=== PATIENT | female | born 1950 | race Caucasian/White ===

== ENCOUNTER → 2018-08-14 17:29 | Outpatient (CLI) | payer MEDICARE | END | disposition home or self-care (01) | LOC: D.MAMMO 13:15 | DX: Z12.31 Encounter for screening mammogram for malignant neoplasm of breast (principal) ==

== ENCOUNTER → 2019-08-27 08:33 | Outpatient (CLI) | payer MEDICARE, BC | END | disposition home or self-care (01) | LOC: D.MRI 08:33 | PROVIDERS: ATTEND Family Medicine | DX: G43.409 Hemiplegic migraine, not intractable, without status migrainosus (principal); G44.53 Primary thunderclap headache ==

== ENCOUNTER → 2020-01-12 09:45 | Outpatient (CLI) | payer MEDICARE, BC | END | disposition home or self-care (01) | LOC: D.RAD 09:45 | PROVIDERS: ATTEND Internal Medicine Gastroenterology | DX: R05 Cough (principal); R49.0 Dysphonia; R13.10 Dysphagia, unspecified ==

== ENCOUNTER → 2020-01-19 12:32 | Outpatient (CLI) | payer MEDICARE, BC | END | disposition home or self-care (01) | LOC: D.RAD 12:32 | PROVIDERS: ATTEND Internal Medicine Gastroenterology | DX: R49.0 Dysphonia (principal); R05 Cough; R13.10 Dysphagia, unspecified ==

== ENCOUNTER → 2020-03-24 08:35 | Outpatient (CLI) | payer MEDICARE, BC ==
--- NOTE | 2020-03-24 10:06 | NUR ---
UNABLE TO COMPETE ESOPHAGEAL MANOMETRY. PT. WITH SMALL NASO PHARANGEAL ANATOMY, UNABLE TO PASS CATHETER BY LEFT NARE WITH MULTIPLE ATTEMPTS. ATTEMPT MADE TO PASS MANOMETRY CATHETER VIA RIGHT NARE WITH RESISTANCE AND BLOOD RETURN RESULTING IN NOSE BLEED. PT. CURRENTLY ON ANTICOAGULANT THERAPY ELEQUIS FOR HISTORY OF ATRIAL FIB AND MEDICATION HELD FOR ONLY 24 HR PRIOR TO TEST. NOSE BLEED CONTROLLED WITH ELEVATION AND PRESSURE. PT. ESCORTED TO FRONT DOOR AFTER NOSE BLEED STOPPED. OFFICE TO BE CONTACTED.
== END | disposition home or self-care (01) ==
LOC: D.OPS 08:35
PROVIDERS: ATTEND Internal Medicine Gastroenterology
DX: K21.9 Gastro-esophageal reflux disease without esophagitis (principal)

== ENCOUNTER 2020-10-05 06:00 | Inpatient (IN) | payer MEDICARE, BC ==
[2020-10-04 12:49] LABS: ANION GAP 11.4 mmol/L (8-16); CALCIUM 9.1 mg/dL (8.5-10.1); CARBON DIOXIDE 30.5 mmol/L (21.0-32.0); CREATININE - SERUM 1.2 mg/dL (0.6-1.3); POTASSIUM - SERUM 3.9 mmol/L (3.5-5.1)
[2020-10-04 12:51] LABS: APTT 30.3 SECONDS (22.8-39.4); INR 1.17 (0.85-1.17); PROTIME 13.8 SECONDS (11.6-15.0)
[2020-10-04 13:03] LABS: BASOPHILS 0.4 % (0-2); EOSINOPHILS 3.5 % (0-7); HEMATOCRIT 43.4 % (36.0-48.0); HEMOGLOBIN 14.8 g/dL (12-16); IMMATURE GRANULOCYTES 0.3 % (0-5); LYMPHOCYTE ABS# 3.22 10x3/uL (1.18-3.74); MCH 31.2 pg (26.0-34.0); MCHC 34.1 g/dL (31.0-37.0); MCV 91.4 fL (80.0-100.0); MEAN PLATELET VOLUME 10.3 fL (7.4-10.4); MONOCYTES 12.6 % (2-11); NEUTROPHIL ABS# 3.01 10x3/uL (1.56-6.13); NEUTROPHILS 40.2 % (40-80); PLATELET COUNT 270 10x3/uL (130-400); RBC 4.75 10x6/uL (4.00-5.40); RDW 13.1 % (11.5-14.5); WBC 7.5 10x3/uL (4.8-10.8)
[2020-10-05] VITALS (39 sets, daily range): BP systolic 74–187; BP diastolic 42–107; BMI 25.0
[~2020-10-05] VITALS: Ht 165.1 cm; Wt 94.9 kg
--- NOTE | ~2020-10-05 | OP ---
PATIENT NAME: ALEXANDER PATRICK MEDICAL RECORD: [id number] :50 LOCATION:D.[facility] D.2305 ADMISSION DATE:10/05/20 SURGEON: MENDEZ WESTBROOK MD DATE OF OPERATION: 10/08/2020 PREOPERATIVE DIAGNOSES: 1. Open abdomen. 2. Acute respiratory failure on the ventilator. 3. Acute renal failure. 4. Shock liver. 5. Postoperative blood loss anemia. 6. Lactic acidosis. POSTOPERATIVE DIAGNOSES: 1. Open abdomen. 2. Acute respiratory failure on the ventilator. 3. Acute renal failure. 4. Shock liver. 5. Postoperative blood loss anemia. 6. Lactic acidosis. 7. Ischemic bowel. PROCEDURE: Abdominal washout with abdominal wound VAC exchange. SURGEON: Mendez Westbrook MD DESCRIPTION OF PROCEDURE: The patient was taken to the operating room. The indwelling abdominal wound VAC was removed including all 5 lap sponges and the two 10 flat RENEE drains. The patient's abdomen was then prepped and draped in sterile fashion. As we inspected the abdomen, there was only a scant amount of blood clot present in the abdomen, some on the right pericolic gutter and another little bit on the left upper quadrant. There seemed to be no evidence of any active hemorrhage anywhere in the abdominal cavity. Unfortunately, there was a lot of ischemic looking bowel present. There are multiple areas throughout the distal small bowel, which had ischemic changes, but no signs of ginny necrosis. There were some ischemic changes to the cecum again with no ginny necrosis and there were some ischemic changes to the distal transverse colon about the level of the splenic flexure again with no necrosis. There was no sign of any bowel perforation. We inspected the entire small bowel, colon, and stomach and saw no evidence of any perforation other than the ischemic tissue that we described. I irrigated out the abdomen thoroughly with normal saline. The patient's abdominal cavity appeared to be viable. The spleen appeared viable and the liver had some dusky appearance to it. There are no signs of any succuss or feculent material in the abdomen. There were no signs of any abscess pockets. At this point, a sterile cassette drape was inserted with multiple perforations in it and laid in underlay fashion over the bowel. Five lap sponges and two 10 flat RENEE drains were then inserted and an Ioban was placed loosely as an abdominal wound VAC. This held suction appropriately. COMPLICATIONS: None. CONDITION: critical. ANESTHESIA: General endotracheal. OPERATIVE REPORT [id number] ALEXANDER PATRICK BLOOD LOSS: Minimal. The patient transferred back to the ICU. TRANSINT:[id number] Voice Confirmation ID: [id number] DOCUMENT ID: [id number] MENDEZ WESTBROOK MD CC: [id number] DICTATION DATE: 10/08/20 143 OPERATING ROOM REGISTERED NURSE: 10/08/20 224 ADM IN [place] [id number] [place] [address]
--- NOTE | ~2020-10-05 | OP ---
PATIENT NAME: ALEXANDER PATRICK MEDICAL RECORD: [id number] :50 LOCATION:.[facility] D.2305 ADMISSION DATE:10/05/20 SURGEON: MENDEZ WESTBROOK MD DATE OF OPERATION: 10/07/2020 PREOPERATIVE DIAGNOSES: 1. Hemorrhagic shock. 2. Coagulopathy. 3. Left pleural effusion. 4. Worsening acute respiratory failure, on the ventilator. 5. Acute renal failure. 6. Shock liver. POSTOPERATIVE DIAGNOSES: 1. Hemorrhagic shock. 2. Coagulopathy. 3. Left pleural effusion. 4. Worsening acute respiratory failure, on the ventilator. 5. Acute renal failure. 6. Shock liver. 7. Abdominal compartment syndrome. PROCEDURE: 1. Exploratory laparotomy with abdominal wound VAC placement. 2. Left 24-Cape Verdean chest tube placement. SURGEON: Mendez Westbrook MD DESCRIPTION OF PROCEDURE: The patient's abdomen was prepped and draped in sterile fashion. The patient had previous incisions from a laparoscopic Oksana fundoplication. These were all opened up. The 11-mm trocar site in the left upper quadrant was penetrated and we were able to insert an 11-mm trocar. We attempted insufflation and the initial pressures were 35. We decided at this point to convert to a laparotomy because there was a major concern of abdominal compartment syndrome with the patient's current physiologic state. A midline incision was performed from the base of the xiphoid down to just below the umbilicus. Electrocautery was used to dissect through the subcutaneous tissues and fascia and we entered the abdominal cavity. Upon entering the abdominal cavity, the patient's peak airway pressures were around 39, but quickly decreased and ended up stabilizing at about 27 consistent with the compartment syndrome. The patient had a large amount of old bloody fluid and a significant amount of blood clots throughout the abdomen. These were all scooped out and we irrigated out the abdomen thoroughly with normal saline. The patient's 4 quadrants and pelvis were inspected individually and packed with laps. As we inspected each quadrant, we saw no evidence of any active bleeding anywhere, but there was some oozing, especially from the left upper quadrant from the previous Oksana fundoplication. There were 2 areas, which had some more significant ooze to it and these were oversewn with 3-0 silks, which discontinued any bleeding in that spot. There continued to be just generalized ooze from some of the tissues, but this did not appear to be very significant. We irrigated out the abdomen thoroughly and inspected the bowels. There was some duskiness to some of the small bowel, but that overall appeared to be pink and viable with good peristalsis. The colon appeared to be viable from the cecum all the way to the proximal portion of the rectum. The stomach was inspected thoroughly. There was some duskiness to the tissue, but no signs of necrotic changes. The Oksana OPERATIVE REPORT [id number] ALEXANDER PATRICK wrap was still intact, but one of the sutures was loose. The suture was removed and a new 2-0 Nurolon was put in its place. The patient's NG tube was moved until it rested in good position in the distal aspect of the stomach. In order to visualize this, I took down the triangular ligament of the left lobe of the liver. With this, I was able to fully visualize the previous surgical site. The spleen was visualized and there was no sign of any bleeding from the spleen, but there was from some of from some of the peritoneum on the posterior aspect of the abdomen near the spleen. This was treated with electrocautery. There was no significant arterial or venous bleeding noted anywhere throughout the abdomen and at the conclusion of the case there was minimal ooze present. I placed a 19 round Yvon drain through the left lateral abdomen and placed this underneath the left lobe of the liver overlying the spleen and the Oksana wrap. This was done because of concerns for further bleeding and oozing from the tissues. The patient then had a sterile cassette drape inserted into the abdominal cavity in an underlay fashion. Five lap sponges were placed over top of this with two 10 flat RENEE drains placed in between them and Ioban dressing was applied over the abdomen and the drains were placed to suction for a wound VAC. Upon placement of the wound VAC, there was no increase in the peak airway pressures and the patient's blood pressure and heart rate were stable. At this point, we prepped the patient's left lateral chest. A transverse incision was made about the 7th intercostal space and I was able to use blunt dissection and a hemostat to come over the intercostal space of the 7th rib. As we entered the thoracic cavity, I felt no evidence of any hematoma. I was able to insert a 24-Cape Verdean chest tube and there was immediate return of about 400 mL of thin bloody fluid with no clots. This was sutured into place with a 2-0 nylon and set to 20 cm of water suction. Dressings were applied. COMPLICATIONS: None. CONDITION: Critical. ANESTHESIA: General endotracheal. BLOOD LOSS: 100 mL. The patient was transferred back to the ICU. TRANSINT:[id number] Voice Confirmation ID: [id number] DOCUMENT ID: [id number] MENDEZ WESTBROOK MD CC: [id number] DICTATION DATE: 10/07/201838 DISPATCHER CHIEF OIL: 10/07/20 2343 ADM IN [facility] [address] [place] [address]
--- NOTE | ~2020-10-05 | OP ---
PATIENT NAME: ALEXANDER PATRICK MEDICAL RECORD: [id number] :50 LOCATION:.[facility] D.2305 ADMISSION DATE:10/05/20 SURGEON: MENDEZ WESTBROOK MD DATE OF OPERATION: 10/05/2020 PREOPERATIVE DIAGNOSES: 1. Hemorrhagic shock, status post laparoscopic Oksana. 2. Intra-abdominal postoperative hemorrhage. 3. Acute blood loss anemia. 4. Atrial fibrillation. POSTOPERATIVE DIAGNOSES: 1. Hemorrhagic shock, status post laparoscopic Oksana. 2. Intra-abdominal postoperative hemorrhage. 3. Acute blood loss anemia. 4. Atrial fibrillation. PROCEDURES: 1. Abdominal exploration laparoscopically with removal of hematoma and ligation of bleeding vessel. 2. Right femoral Trialysis catheter placement by Dr. Woodall. 3. Right femoral art line placement by Dr. Woodall. 4. Right chest tube placement by Dr. Woodall. SURGEON: Mendez Westbrook MD. COSURGEON: John Woodall MD. REPORT OF OPERATION: The patient was taken emergently to the operating room from recovery where she was noted to have a steep drop in her hematocrit postoperatively with low blood pressures. The patient had attempts made for IJ central venous lines, which were unsuccessful. We prepped and draped the abdomen and I was able to reenter through the previous trocar sites from the recent Oksana fundoplication. Once inside, there was a large amount of blood and clot that was present. We were eventually able to suction out most of this blood clot and get up to the area underneath the left lobe of the liver. The previous liver biopsy site had no evidence of any bleeding. The spleen appeared to be normal and there is no sign of any bleeding from the stomach itself. The bleeding appeared to be coming from an aberrant blood vessel on the lesser omentum. This blood vessel had actually been seen on the initial surgery and was treated with Harmonic scalpel on a couple of occasions and had no evidence of any bleeding in any time through the course. There was pulsatile bleeding from this vessel and there were 2 branches of it. I was able to find both branches and this was clipped proximally and distally and this stopped any bleeding from the abdominal cavity. We then irrigated out the abdomen and ensured there was no sign of any active surgical bleeding anywhere else, which there was none. The area was then instilled with Gayathri and 11-mm trocar sites were then closed with 0 Vicryl using a Grzegorz-Dayanara suture passer device and the skin incisions were all closed with liz. During the case, Dr. Woodall placed a right femoral Trialysis catheter for IV access and also a right femoral arterial line. There was concern during the case with continued low blood pressures that there might have been a pneumothorax from the right IJ attempted central line placement. A chest tube was inserted in the right chest by Dr. Woodall. There was a small amount of air present, but otherwise it appeared to be clear and clean. This was sutured into place with nylon stitch. The patient OPERATIVE REPORT [id number] ALEXANDER PATRICK did have a lot of swelling in the neck region and an x-ray showed the chest tube to be in good position, but there was widened mediastinum. By this point, the patient had received about 12 units of blood, 3 units of FFP, and a unit of platelets. She was stable and off of pressors with hypertension at this point. The patient was off all drips other than some nitroglycerin. A transthoracic echo had been performed and it showed no evidence of significant pericardial effusion and no sign of tamponade. The patient's EF was felt to be around 55%. COMPLICATIONS: Postoperative bleeding. CONDITION: Guarded. TRANSINT:[id number] Voice Confirmation ID: [id number] DOCUMENT ID: [id number] MENDEZ WESTBROOK MD CC: [id number] DICTATION DATE: 10/05/20 1318 BIAS BINDING FOLDER: 10/05/202151 ADM IN [facility] [address] [place] [id number]
--- NOTE | ~2020-10-05 | OP ---
PATIENT NAME: ALEXANDER PATRICK MEDICAL RECORD: [id number] :50 LOCATION:.[facility] D.2305 ADMISSION DATE:10/05/20 SURGEON: MENDEZ WESTBROOK MD DATE OF OPERATION: 10/05/2020 PREOPERATIVE DIAGNOSES: 1. Gastroesophageal reflux disease. 2. Hiatal hernia. 3. Hypertension. 4. Atrial fibrillation. POSTOPERATIVE DIAGNOSES: 1. Gastroesophageal reflux disease. 2. Hiatal hernia. 3. Hypertension. 4. Atrial fibrillation. PROCEDURE: 1. Laparoscopic Oksana hiatal hernia repair. 2. Laparoscopic liver biopsy. SURGEON: Mendez Westbrook MD DESCRIPTION OF PROCEDURE: The patient's abdomen was prepped and draped in sterile fashion. A Veress needle was inserted in the left upper quadrant and the abdomen was insufflated. An 11-mm Visiport trocar was inserted in the midline just above the umbilicus. I could see the Veress needle and there was no sign of any injury to bowel or surrounding structures. An 11-mm trocar was then placed in the left subcostal region. A 5-mm trocar was placed in the epigastrium. A 5-mm trocar was placed in the left lateral abdomen and a final 5-mm trocar was placed in the right lateral subcostal region. A liver retractor was inserted and the left lobe of the liver was elevated. The liver was noted to be kind of chronically inflamed with some cobblestone appearance concerning for cirrhotic changes. The liver was heavy and firm as well. We could see the stomach and there was a small hiatal hernia present. We began taking down the lesser omentum using Harmonic scalpel. There was a venous structure present within this and this was ligated with the Harmonic scalpel. We took down the lesser omentum up to the right side of the right kandy and scored the peritoneum before entering the thoracic cavity. We took down the hernia sac and released the tissues as far anteriorly and posteriorly as possible. We then approached the greater curvature of the stomach and took down the upper third of the short gastrics using Harmonic scalpel all the way to the left side of the right kandy. We then scored the peritoneum and entered the thoracic cavity. At this point, we freed up all the adhesions until we had a 360-degree inspection of the patient's esophagus and distal stomach. We freed up the esophagus enough to where about 2-3 cm of it rested comfortably in the abdominal cavity without any tension. We then reapproximated the esophageal hiatus using interrupted 0 Polydek times 2. The fundus of the stomach was pulled around the distal esophagus in a posterior fashion for a 360-degree wrap. This was done utilizing interrupted 0 Polydek times 3 with the top and the bottom suture incorporating a bite of the esophagus. The wrap appeared to rest in good position with no tension and there was plenty of esophagus present in the abdominal cavity. The area was then irrigated out thoroughly with normal saline and care was taken to assure there was no sign of any bleeding. At this point, a 14-gauge Kameron-Cut liver biopsy tool was used to take 2 specimens of the left lobe of the liver. OPERATIVE REPORT [id number] ALEXANDER PATRICK Any bleeding from this was then treated with electrocautery. At this point, the 11-mm trocar site fascias were closed with interrupted 0 Vicryl using a Grzegorz-Dayanara suture passer device. The liver retractor along with the ports and insufflation were then removed. The skin incisions were infused with a total of 10 mL of 0.25% Marcaine plain and then were closed with running subcutaneous 5-0 Monocryl. COMPLICATIONS: None. CONDITION: Stable. ANESTHESIA: General endotracheal and local. BLOOD LOSS: Minimal. TRANSINT:[id number] Voice Confirmation ID: [id number] DOCUMENT ID: [id number] MENDEZ WESTBROOK MD CC: MAHSA WALTON [id number] DICTATION DATE: 10/05/2049 MEDICAL LAB SPECIALIST: 10/05/20 1319 ADM IN [facility] [address] [place] [id number]
[~2020-10-05 06:00] MED LIST: CYMBALTA30 MG PO; ELIQUIS5 MG PO; KRILL OIL 1,001 EAC1 PO; LISINOPRIL20 MG PO; LOPRESSOR25 MG PO; MAG-OX 400 MG400 MG PO; PEPCID40 MG PO; PREVACID30 MG PO
[2020-10-05 10:36] LABS: BASOPHILS 0.2 % (0-2); EOSINOPHILS 0.6 % (0-7); IMMATURE GRANULOCYTES 0.1 % (0-5); LYMPHOCYTE ABS# 4.13 10x3/uL (1.18-3.74); LYMPHOCYTES 49.3 % (15-50); MCH 30.3 pg (26.0-34.0); MCHC 32.8 g/dL (31.0-37.0); MCV 92.4 fL (80.0-100.0); MONOCYTES 4.3 % (2-11); NEUTROPHILS 45.5 % (40-80); RDW 13.1 % (11.5-14.5); WBC 8.4 10x3/uL (4.8-10.8)
[2020-10-05 10:46] LABS: HEMATOCRIT 23.2 % (36.0-48.0); HEMOGLOBIN 7.6 g/dL (12-16); PLATELET COUNT 185 10x3/uL (130-400); RBC 2.51 10x6/uL (4.00-5.40)
[2020-10-05 10:49] LABS: ANION GAP 8.6 mmol/L (8-16); CALCIUM 7.4 mg/dL (8.5-10.1); CARBON DIOXIDE 28.8 mmol/L (21.0-32.0); CREATININE - SERUM 1.4 mg/dL (0.6-1.3); POTASSIUM - SERUM 4.4 mmol/L (3.5-5.1)
[2020-10-05 13:40] LABS: ANION GAP 24.3 mmol/L (8-16); CALCIUM 10.8 mg/dL (8.5-10.1); CARBON DIOXIDE 24.1 mmol/L (21.0-32.0); CREATININE - SERUM 1.8 mg/dL (0.6-1.3); POTASSIUM - SERUM 3.4 mmol/L (3.5-5.1)
[2020-10-05 13:43] LABS: BASOPHILS 0.1 % (0-2); EOSINOPHILS 0.3 % (0-7); IMMATURE GRANULOCYTES 0.8 % (0-5); LYMPHOCYTES 21.6 % (15-50); MCH 28.2 pg (26.0-34.0); MCHC 31.9 g/dL (31.0-37.0); MONOCYTES 2.3 % (2-11); NEUTROPHIL ABS# 9.73 10x3/uL (1.56-6.13); NEUTROPHILS 74.9 % (40-80); PLATELET COUNT 148 10x3/uL (130-400); RDW 15.3 % (11.5-14.5)
[2020-10-05 13:51] LABS: ALBUMIN 1.7 g/dL (3.4-5.0); BILIRUBIN - TOTAL 0.71 mg/dL (0.2-1.3); PROTEIN - SERUM 3.9 g/dL (6.4-8.2)
[2020-10-05 13:55] LABS: HEMATOCRIT 30.4 % (36.0-48.0); HEMOGLOBIN 9.7 g/dL (12-16); MCV 88.4 fL (80.0-100.0); RBC 3.44 10x6/uL (4.00-5.40)
[2020-10-05 14:11] LABS: APTT 138.8 SECONDS (22.8-39.4); INR 2.37 (0.85-1.17)
--- NOTE | 2020-10-05 14:40 | NUR ---
DELAYED ENTRY - PT ARRIVED TO PACU @ 0946, ASSESSMENT MADE. AT APPROX 0952, PT BP READ 52/33. CUFF READJUSTED, SIMILAR RESULT. PT PLACED IN [place] WHILE ADDITIONAL BP CUFF PLACED IN ALTERNATE LOCATION AND ATTACHED TO [employer]. RESULTS CORRELATED. WARD ROBERTS CLOTH HAULER AT BEDSIDE, EPHEDRINE 20 MG GIVEN IV AT APPROX 0955. ADDITIONAL STAFF ARRIVED TO PACU, INCLUDING POLINA GRIFFIN CRNA. DR BALL ARRIVED, MLTIPLE INTERVENTIONS ORDERED - SEE ANESTHESIA RECORD. 12 LEAD EKG, FINGER STICK BLOOD GLUCOSE, BLOOD GASES, CBC, CXR ORDERED. DR WESTBROOK JOINED THE GROUP AT BEDSIDE. UPON RETURN OF H&H, DECISION WAS MADE TO RETURN PT TO OR FOR EXPLORATORY LAP. PT LEFT PACU AT APPROX 1103.
--- NOTE | 2020-10-05 19:23 | NUR ---
REC'D REPORT AND CARE CONTINUED. PT INTUBATED WITH NO SPONT RESP OVER VENT. PUPILS 5 S/P ATROPINE. BUT WILL WINCE WHEN EYES EXAMINED. ON LEVO AND VASO FOR BP SUPPORT. TERRIE AND CENTRAL LINE TO RIGHT FEM. DRESSINGS TO EXP LAP SITES MINIMAL OOZING. BRUISING TO NECK, UPPER TORSO AND ARMS. OOZING FROM MOUTH AND ETT. ALSO OOZING AT RIGHT CW CT SITE. 1929 LABS DRAWN FROM [place]. TEMP 94 AXILLARY AND WARMING BLANKET PLACED ON PT. AWAITING LABS RESULTS. PT ONLY WINCES WITH EYES WHEN EXAMINED. NO OTHER MOVEMENT NOTED. WILL CONT TO MONITOR.
[2020-10-05 19:35] LABS: BASOPHILS 0.1 % (0-2); EOSINOPHILS 0.1 % (0-7); IMMATURE GRANULOCYTES 0.6 % (0-5); LYMPHOCYTE ABS# 2.63 10x3/uL (1.18-3.74); LYMPHOCYTES 15.3 % (15-50); MCH 28.1 pg (26.0-34.0); MCHC 32.6 g/dL (31.0-37.0); MEAN PLATELET VOLUME 9.2 fL (7.4-10.4); MONOCYTES 11.8 % (2-11); NEUTROPHIL ABS# 12.38 10x3/uL (1.56-6.13); NEUTROPHILS 72.1 % (40-80); PLATELET COUNT 140 10x3/uL (130-400); RDW 15.6 % (11.5-14.5)
[2020-10-05 19:36] LABS: HEMATOCRIT 23.3 % (36.0-48.0); HEMOGLOBIN 7.6 g/dL (12-16); WBC 17.2 10x3/uL (4.8-10.8)
[2020-10-05 19:37] LABS: MCV 86.3 fL (80.0-100.0)
--- NOTE | 2020-10-05 21:29 | NUR ---
2000 HERE AND UPDATED. CHILDREN TO FOLLOW. 2024 PAGED YOGESH WITH LAB RESULTS. SPOKE WITH YOGESH AND POC ESTABLISHED. ORDERS PLACED. 2049 DARIANA PAGED TO UPDATE ON LAB RESULTS AND DISCUSS PLAN ESTABLISHED WITH YOGESH. 2 UNITS FFP STARTED. HOLDING PRESSORS VOLUME HELPING WITH BP. FFP DONE 2099. LAB SETTING UP THE ADDTIONAL 2 ORDERED. 2119 2 UNITS PRBC BOTH STARTED. LAB REPORTS CAN GIVE PLT AFTER BLOOD IN.
[2020-10-05 21:40] LABS: ALBUMIN 1.9 g/dL (3.4-5.0); BILIRUBIN - TOTAL 1.53 mg/dL (0.2-1.3); CALCIUM 9.3 mg/dL (8.5-10.1)
[2020-10-05 21:51] LABS: CARBON DIOXIDE 12.9 mmol/L (21.0-32.0); CREATININE - SERUM 2.5 mg/dL (0.6-1.3); POTASSIUM - SERUM 4.9 mmol/L (3.5-5.1)
--- NOTE | 2020-10-05 23:39 | NUR ---
2199 LAB CALLED WITH RESULTS OF CMP. AMP BICARB GIVEN FOR LOW GLUCOSE. DR ZUÑIGA PAGED WITH LABS. NEW ORDERS NOTED. IVF CHANGED TO D5 WITH 2 AMPS BICARB. AM LABS CHANGED. ORDERS PLACED IN SYSTEM. 2244 DAUGHTER BACK TO VISIT. UPDATED ON STATUS. PT AWAKE NOW AND AFTER VISIT BECAME AGITATED. ATTEMPTED TO RELAX PT. MOVING ARMS AROUND IN BED. WHEN ASKED IF HURTING SHAKES HEAD NO. SHAKES HEAD TO HOT. TEMP IMPROVED ON CHECK AND BLANKET PLACED ON HOLD. PROPOFOL STARTED AT LOW DOSE FOR AGITATION AND RESTRAINTS PLACED FOR SAFETY. 0 AFTER LAST OF BLOOD PRODUCTS BP IMPROVED. LEVO OFF SINCE FIRST SET OF PRODUCTS AT 2100. NOW VASO CUT IN HALF. [address] HOLD. [address] FRANK CALLED TO CHECK ON PT. UPDATE GIVEN. 2344 MAP 58 RETURNED VASO TO 0.02UNITS/HR. WILL MONITOR CLOSELY.
[2020-10-06] VITALS (40 sets, daily range): BP systolic 93–163; BP diastolic 41–85; BMI 30.7; BMI 31.8
--- NOTE | 2020-10-06 08:08 | EC ---
PATIENT:ALEXANDER PATRICK DATE OF SERVICE: 10/05/20 SEX: F MEDICAL RECORD: [id number] DATE OF : 50 LOCATION:[facility] D230 AGE OF PATIENT: 69 ADMISSION DATE: 10/05/20 REFERRING PHYSICIAN: INTERPRETING PHYSICIAN: DANDRE MARTINEZ MD ECHOCARDIOGRAM REPORT ECHO CHARGES 5 ECHO LIMITED Date: 10/05/20 CLINICAL DIAGNOSIS: R/O PERICARDIAL EFFUSION DURING SURGERY ECHOCARDIOGRAPHIC MEASUREMENTS (adult normal given) AC root (d.<3.7cm) 0 cm LV Septum d (<1.2 cm> 0 cm Valve Excursion 0 cm LV Septum (systole) 0 cm Left Atria (s.<4.0cm> 0 cm LVPW d(<1.2cm) 0 cm RV (d.<2.3cm) 0 cm LVPW (sytole) 0 cm LV diastole(<5.6CM) 0 cm MV E-F(>70mm/sec) 0 cm LV systole 0 cm LVOT Diameter 0 cm MV exc.(>10mm) 0 cm Est.ejection fraction (50-75%) % DOPPLER: LVIT cm/sec A 0 cm/sec E 0 cm/sec LA 0 cm/sec RVSP 0 mmHg LVOT 0 cm/sec AOP1/2T 0 m/s Asc. Ao 0 cm/sec RVOT 0 cm/sec RA 0 cm/sec PA 0 cm/sec AV Gradient Peak 0 mmHg AV Mean 0 mmHg AV Area 0 cm MV Gradient Peak 0 mmHg MV Mean 0 mmHg MV Area 0 cm COMMENTS: 0 Hspt Tutor: Fei TIPTONSALINA BENITO Hospitality Workers: 3 Dr. Shaver TAPE# Pericardial Effusion Y DATE OF SERVICE: Limited study to rule out pericardial effusion. Grossly LV internal dimension is normal. Wall motion is normal. EF is greater than or equal to 55%. Aortic valve has good valve excursion. Left atrium grossly appears normal. Mitral valve appears normal. A small mostly posterior pericardial effusion is noted with no hemodynamic significance. TRANSINT:[id number] Voice Confirmation ID: [id number] DOCUMENT ID: [id number] ECHOCARDIOGRAM REPORT [id number] ALEXANDER PATRICK DANDRE MARTINEZ MD at 0808 CC: [id number] DICTATION DATE: 10/05/20 1630 VEHICLE MAINTENANCE TECHNICIAN: 04/07/[address] [facility] [address] [place] [place] [id number]
[2020-10-06 08:29] LABS: BASOPHILS 0.1 % (0-2); EOSINOPHILS 0.1 % (0-7); IMMATURE GRANULOCYTES 0.3 % (0-5); LYMPHOCYTE ABS# 2.57 10x3/uL (1.18-3.74); LYMPHOCYTES 18.6 % (15-50); MCH 29.1 pg (26.0-34.0); MCHC 33.5 g/dL (31.0-37.0); MCV 86.9 fL (80.0-100.0); MEAN PLATELET VOLUME 10.7 fL (7.4-10.4); MONOCYTES 8.5 % (2-11); NEUTROPHIL ABS# 10.02 10x3/uL (1.56-6.13); NEUTROPHILS 72.4 % (40-80); PLATELET COUNT 141 10x3/uL (130-400); RDW 15.5 % (11.5-14.5); WBC 13.8 10x3/uL (4.8-10.8)
[2020-10-06 08:32] LABS: HEMATOCRIT 17.3 % (36.0-48.0); HEMOGLOBIN 5.8 g/dL (12-16); RBC 1.99 10x6/uL (4.00-5.40)
[2020-10-06 08:38] LABS: BILIRUBIN - TOTAL 1.18 mg/dL (0.2-1.3); CALCIUM 8.6 mg/dL (8.5-10.1); POTASSIUM - SERUM 4.5 mmol/L (3.5-5.1); PROTEIN - SERUM 4.2 g/dL (6.4-8.2)
[2020-10-06 08:39] LABS: CREATININE - SERUM 3.2 mg/dL (0.6-1.3)
[2020-10-06 08:40] LABS: ANION GAP 29.8 mmol/L (8-16); CARBON DIOXIDE 19.7 mmol/L (21.0-32.0)
[2020-10-06 08:50] LABS: INR 2.67 (0.85-1.17); PROTIME 26.5 SECONDS (11.6-15.0)
[2020-10-06 13:17] LABS: BASOPHILS 0.1 % (0-2); EOSINOPHILS 0.1 % (0-7); IMMATURE GRANULOCYTES 0.5 % (0-5); LYMPHOCYTES 15.4 % (15-50); MCHC 33.6 g/dL (31.0-37.0); MEAN PLATELET VOLUME 10.1 fL (7.4-10.4); NEUTROPHIL ABS# 9.64 10x3/uL (1.56-6.13); NEUTROPHILS 73.9 % (40-80); RDW 20.5 % (11.5-14.5)
[2020-10-06 13:26] LABS: HEMOGLOBIN 11.1 g/dL (12-16); MCV 83.1 fL (80.0-100.0); PLATELET COUNT 83 10x3/uL (130-400)
[2020-10-06 13:32] LABS: RBC 3.97 10x6/uL (4.00-5.40)
[2020-10-06 13:35] LABS: APTT 42.1 SECONDS (22.8-39.4); INR 3.13 (0.85-1.17)
[2020-10-06 13:42] LABS: ALBUMIN 1.7 g/dL (3.4-5.0); ANION GAP 24.2 mmol/L (8-16); BILIRUBIN - TOTAL 1.02 mg/dL (0.2-1.3); CALCIUM 7.9 mg/dL (8.5-10.1); CARBON DIOXIDE 23.1 mmol/L (21.0-32.0); CREATININE - SERUM 3.2 mg/dL (0.6-1.3); POTASSIUM - SERUM 4.3 mmol/L (3.5-5.1); PROTEIN - SERUM 3.7 g/dL (6.4-8.2)
[2020-10-06 14:42] LABS: MAGNESIUM - SERUM 1.9 mg/dL (1.8-2.4); PHOSPHOROUS 6.2 mg/dL (2.5-4.9)
[2020-10-06 15:58] LABS: INR 1.97 (0.85-1.17); PROTIME 20.8 SECONDS (11.6-15.0)
[2020-10-06 18:43] LABS: BASOPHILS 0.1 % (0-2); EOSINOPHILS 0 % (0-7); IMMATURE GRANULOCYTES 0.4 % (0-5); LYMPHOCYTE ABS# 2.36 10x3/uL (1.18-3.74); LYMPHOCYTES 17.2 % (15-50); MCH 27.7 pg (26.0-34.0); MCHC 33.6 g/dL (31.0-37.0); MCV 82.3 fL (80.0-100.0); MEAN PLATELET VOLUME 10.5 fL (7.4-10.4); MONOCYTES 9.5 % (2-11); NEUTROPHILS 72.8 % (40-80); PLATELET COUNT 74 10x3/uL (130-400); RDW 20.7 % (11.5-14.5); WBC 13.7 10x3/uL (4.8-10.8)
[2020-10-06 18:44] LABS: HEMATOCRIT 25.6 % (36.0-48.0); HEMOGLOBIN 8.6 g/dL (12-16); RBC 3.11 10x6/uL (4.00-5.40)
[2020-10-06 18:52] LABS: INR 2.03 (0.85-1.17); PROTIME 21.3 SECONDS (11.6-15.0)
[2020-10-06 19:01] LABS: ANION GAP 20.8 mmol/L (8-16); CALCIUM 8.4 mg/dL (8.5-10.1); CARBON DIOXIDE 27.3 mmol/L (21.0-32.0); CREATININE - SERUM 3.6 mg/dL (0.6-1.3); POTASSIUM - SERUM 4.1 mmol/L (3.5-5.1)
[2020-10-06 19:18] LABS: BILIRUBIN - TOTAL 1.44 mg/dL (0.2-1.3)
[2020-10-06 19:57] LABS: ALBUMIN 2.4 g/dL (3.4-5.0); PROTEIN - SERUM 4.8 g/dL (6.4-8.2)
--- NOTE | 2020-10-06 21:33 | NUR ---
2049-PAGED DR ZUÑIGA TO UPDATE ON PT STATUS. AFTER DISCUSSING STATUS DR WESTBROOK PAGED TO DISCUSS WELL AND INQUIRE ABOUT NEPHRO CONSULT. AFTER SPEAKING WITH DR WESTBROOK NEPHRO ONCALL-DR BLACKWELL PAGED AND GIVEN INFO ON PT. NEW ORDERS REC'D. PHARMACY MIXING NEW IVF. DR BLACKWELL TO SEE IN AM. WILL CONT TO MONITOR. DAUGHTER FROM [place] AT BS SINCE 1999. UPDATED ON STATUS AND QUESTIONS ANSWERED. VERBALIZED UNDERSTANDING. REMAINS AT BS. POC FOR LABS IN AM ORDERED. WILL CONTINUE TO MONITOR CLOSELY.
[2020-10-07] VITALS (46 sets, daily range): BP systolic 83–155; BP diastolic 27–95; Ht 165.1 cm; Wt 94.9 kg
[2020-10-07 04:43] LABS: BASOPHILS 0.1 % (0-2); EOSINOPHILS 0 % (0-7); HEMATOCRIT 22.1 % (36.0-48.0); HEMOGLOBIN 7.6 g/dL (12-16); IMMATURE GRANULOCYTES 0.5 % (0-5); LYMPHOCYTE ABS# 2.38 10x3/uL (1.18-3.74); LYMPHOCYTES 16.2 % (15-50); MCH 29.6 pg (26.0-34.0); MCHC 34.4 g/dL (31.0-37.0); MEAN PLATELET VOLUME 10.5 fL (7.4-10.4); MONOCYTES 11.9 % (2-11); NEUTROPHIL ABS# 10.45 10x3/uL (1.56-6.13); NEUTROPHILS 71.3 % (40-80); RBC 2.57 10x6/uL (4.00-5.40); RDW 19.9 % (11.5-14.5); WBC 14.7 10x3/uL (4.8-10.8)
[2020-10-07 04:56] LABS: PLATELET COUNT 128 10x3/uL (130-400)
[2020-10-07 05:00] LABS: APTT 35.9 SECONDS (22.8-39.4); INR 2.03 (0.85-1.17); PROTIME 21.3 SECONDS (11.6-15.0)
[2020-10-07 05:04] LABS: ALBUMIN 2.4 g/dL (3.4-5.0); ANION GAP 26.3 mmol/L (8-16); BILIRUBIN - TOTAL 2.03 mg/dL (0.2-1.3); CARBON DIOXIDE 22.2 mmol/L (21.0-32.0); CREATININE - SERUM 4.3 mg/dL (0.6-1.3); MAGNESIUM - SERUM 1.9 mg/dL (1.8-2.4); PHOSPHOROUS 6.8 mg/dL (2.5-4.9); POTASSIUM - SERUM 4.5 mmol/L (3.5-5.1); PROTEIN - SERUM 4.8 g/dL (6.4-8.2)
--- NOTE | 2020-10-07 06:19 | NUR ---
[address] WESTBROOK AND REPORTED LAB. 2 UNITS FFP ORDERED. ORDERS PLACED.
--- NOTE | 2020-10-07 07:43 | NUR ---
ETT SECURE TO VENT BILATERAL LUNG SOUNDS EQUAL COARSE. HANDS AND FEET ICE COLD. BODY WARM. SCD ON LOWER LEGS. RIGHT FEMEROL TERRIE AND TRIALYSIS DRESSING DRY AND INTACT. CHEST TUBE RIGHT UPPER LATERAL CHEST DRESSING DRY AND INTACT. CHEST TUBE TO 20 CM SUCTION BLOODY DRAINAGE NO AIR LEAK NOTED. NO URINE IN KAUR CATH TUBING OR BACK. HEAD OF BED ELEVATED [address] BLACKWELL HERE. NG TO LOW INTERMITTENT SUCTION BROWN DRAINAGE IN TUBING. DIPRIVAN TURNED DOWN TO 10 MCG/KG/MIN. TO CHECK MENTAL STATUS. D5W WITH ONE AMP NABICARB AT 75 ML HOUR. HANDS EXTREMEMLY SWOLLEN ELEVATED ON PILLOWS. NO DISTRESS NOTED
--- NOTE | 2020-10-07 14:00 | NUR ---
DR. WESTBROOK CALLED ABOUT HER BLOOD PRESSURE DROPPING, HEART RATE INCREASED AND IRREGULAR POSSIBLE ATRIAL FIB. INCREASING OXYGEN ON VENT, LEVOPHED STARTED. ORDERS FOR LAB AND TO GIVE 2 UNITS OF BLOOD. DIALYSIS HERE
--- NOTE | 2020-10-07 14:16 | NUR ---
INCREASED PEEP TO 8
[2020-10-07 14:33] LABS: HEMATOCRIT 18.3 % (36.0-48.0)
--- NOTE | 2020-10-07 14:37 | OP ---
PATIENT NAME: ALEXANDER PATRICK MEDICAL RECORD: [id number] :50 LOCATION:D.[facility] D.[id number] ADMISSION DATE:10/05/20 SURGEON: SHERRILL HUERTA MD DATE OF OPERATION: 10/05/2020 CUSTOMER PROJECT MANAGER'S NOTE PREOPERATIVE DIAGNOSES: 1. Postoperative hemorrhagic shock. 2. Need of additional venous access for large volume of blood product transfusion. 3. Need of arterial line for continuous hemodynamic monitoring. 4. Decreased breath sounds on the right, suspicious for pneumothorax. POSTOPERATIVE DIAGNOSES: 1. Postoperative hemorrhagic shock. 2. Need of additional venous access for large volume of blood product transfusion. 3. Need of arterial line for continuous hemodynamic monitoring. 4. Decreased breath sounds on the right, suspicious for pneumothorax. 5. Cardiopulmonary arrest. PROCEDURE: This is an melter assistant's note, however, I was the primary surgeon for these three procedures. 1. Placement of right groin Trialysis catheter 20 cm. 2. Placement of a right groin arterial line for continuous hemodynamic monitoring. 3. Placement of right 28-[place] chest tube. SURGEON: Sherrill Huerta MD CUSTOMER PROJECT MANAGER: None. BLOOD LOSS: Minimal. ANESTHESIA: General. COMPLICATIONS: Please see Dr. Westbrook's description. I was called to the operating room emergently. The patient was in hemorrhagic shock. I scrubbed in and began trying to assist with manipulation of tissues, so that Dr. Westbrook could identify the area that was leaking. My involvement of the operation included placement of the Marc retractor. Aspiration. Irrigation. Running the camera. Manipulation of tissues. I had a minor role in the operation as an melter assistant. Additional central or peripheral access was needed for large volume and transfusions of blood products as well as other medications. This was not obtainable so far. The right lower extremity was prepped and draped. Percutaneous access to the right common femoral vein on the first try. The guidewire passed easily. A small slit was accomplished. A subcutaneous dilator was used to dilate the subcutaneous tract. A 20-cm Trialysis catheter was inserted. We began using it for large volume, rapid infusion of blood products immediately. The Trialysis OPERATIVE REPORT [id number] ALEXANDER PATRICK catheter was then sutured in place times 3. I then went about placement of an arterial line. On my first stick, we were really uncertain whether this was arterial blood or not that is because of the very low blood pressures. It was attached to the Flush transducer. There was no arterial waveform and therefore unable to pass stick. A second stick, I was able to percutaneously access the right common femoral artery in a retrograde fashion. A guidewire passed easily. A small skin maury was accomplished. A long Angiocath type catheter was inserted over the wire. Pulsatile blood came out through the Angiocath. This was attached to Flush transducer tubing. The arterial line was then sutured in place times 3. There was an excellent waveform on the monitor. I was then told by the anesthesia staff that there were decreased breath sounds on the right side and that there had been attempts to place a venous access on the right side. They stated that it was difficult to ventilate the patient. There were very concerned about a pneumothorax on the right. I prepped the right chest. At about the level of the 5th intercostal space in the mid axillary line, a transverse incision was accomplished. I entered the right hemithorax over rib. I did not hear a gush of air. However, it was very noisy in the operating room. I passed 28-[place] chest tube to 16 [address] in place with 2-0 nylon. Chest tube was attached to a chest tube canister which was attached to suction. There was little bit of blood that came out of the chest tube. The site was sterilely dressed. I then asked that an ultrasound to be obtained to investigate the possibility of a cardiac tamponade as the patient had a very narrow pulse pressure. There was a trace pericardial effusion, but nothing that was impeding cardiac function. I then asked for x-ray to arrive as they would take a view of the chest. The right-sided chest tube appeared to be very well placed. Lungs were expanded. The mediastinum was very wide. There was evidence of pulmonary edema in perihilar areas, particularly on the left. TRANSINT:[id number] Voice Confirmation ID: [id number] DOCUMENT ID: [id number] SHERRILL HUERTA MD at 1437 CC: GLORIA WESTBROOK [id number] DICTATION DATE: 10/05/201905 SERVICE CAR DRIVER: 10/06/20 0336 ADM IN [place] [id number] [place] [address]
[2020-10-07 14:41] LABS: APTT 36.6 SECONDS (22.8-39.4); INR 2.27 (0.85-1.17); PROTIME 23.2 SECONDS (11.6-15.0)
--- NOTE | 2020-10-07 14:52 | NUR ---
DIALYSIS STARTED FIRST UNIT OF BLOOD INFUISNG. HERE UPDATE GIVEN.
--- NOTE | 2020-10-07 15:00 | NUR ---
DR. WESTBROOK HERE, 2ND UNIT OF BLOOD INFUSING, DIALYSIS STOPPED, UNABLE TO REMOVE ANY FLUID DUE TO BLOOD PRESSURE DROPPING. LEVOPHED GTT AT 20 MCG/MIN TRYING TO MAINTAIN SYS BP 90 AND GREATER, TO ALLOW DIALYSIS TO REMOVE SOME FLUID, HEART RATE ELEVATING LANOXIN 0.5MCG GIVEN PER DR. WESTBROOK ORDER. PATIENT IN SR AND ATRIAL FIB. DR. WESTBROOK TALKED WITH FAMILY AND DAUGHTERS.
--- NOTE | 2020-10-07 15:30 | NUR ---
CONSENTS SIGNED BY FOR SURGERY, ALL QUESTIONS ANSWERED. WEANING LEVOPHED TOLERATED. MONITOR STILL SR & ATRIAL FIB.
--- NOTE | 2020-10-07 15:51 | NUR ---
INCREASED PEEP T0 10
--- NOTE | 2020-10-07 16:00 | NUR ---
UNIT FFP STARTED. 2ND UNIT OF BLOOD COMPLETED. STILL WEANING LEVOPHED. AT 10 MCG/MIN.
--- NOTE | 2020-10-07 16:17 | NUR ---
TO OR PER BED WITH ANESTHIA. FAMILY AT BEDSIDE.
[2020-10-07 16:18] LABS: CKMB 47.8 U/L (0.0-3.6); CREATINE KINASE 2857 UL (21-215)
--- NOTE | 2020-10-07 18:45 | NUR ---
RETURNED FROM OR. ETT SECURE TO VENT. ABD DRESSING DRY AND INTACT, RENEE DRAINS 3 3, 2 RENEE DRAINS TO LOW WALL SUCTION. ONE RENEE DRAIN COMPRESSED WITH BLODDY DRAINAGE. BILATERAL CHEST TUBES TO ONE PLEURVAC 20 CM SUCTION. NG TO LOW INTERMITTENT SUCTION. KAUR CATH PATENT. NO DRAINAGE IN TUBING. TERRIE AND TRIALYSIS IN RIGHT GROIN. REPORT TO CHANG.
--- NOTE | 2020-10-07 19:25 | NUR ---
OPEN ABDOMIN, RETAINING 5 LAP SPONGES.
[2020-10-07 19:51] LABS: APTT 40.5 SECONDS (22.8-39.4); INR 2.48 (0.85-1.17); PROTIME 24.9 SECONDS (11.6-15.0)
[2020-10-07 20:03] LABS: ALBUMIN 2.1 g/dL (3.4-5.0); ANION GAP 33.3 mmol/L (8-16); BILIRUBIN - TOTAL 2.57 mg/dL (0.2-1.3); CALCIUM 9.3 mg/dL (8.5-10.1); CREATININE - SERUM 4.4 mg/dL (0.6-1.3); POTASSIUM - SERUM 4.3 mmol/L (3.5-5.1); PROTEIN - SERUM 4.2 g/dL (6.4-8.2)
[2020-10-07 20:24] LABS: LYMPHOCYTE ABS# 1.62 10x3/uL (1.18-3.74); MCH 28.6 pg (26.0-34.0); MCHC 32.1 g/dL (31.0-37.0); MEAN PLATELET VOLUME 11.1 fL (7.4-10.4); RBC 3.01 10x6/uL (4.00-5.40); RDW 17.4 % (11.5-14.5)
[2020-10-07 20:25] LABS: HEMATOCRIT 26.8 % (36.0-48.0); HEMOGLOBIN 8.6 g/dL (12-16); PLATELET COUNT 50 10x3/uL (130-400); WBC 7.4 10x3/uL (4.8-10.8)
[2020-10-07 20:46] LABS: LYMPHOCYTES 28 % (15-50); MONOCYTES 7 % (2-11); NEUTROPHILS 65 % (40-80); PLATELET ESTIMATE DECREASED; TEAR DROP CELLS 1+
[2020-10-07 20:47] LABS: ROULEAUX OCC
[2020-10-07 20:48] LABS: POIKILOCYTOSIS OCC
--- NOTE | 2020-10-07 20:54 | NUR ---
DR. WESTBROOK CALLED TO CHECK ON STATUS. ORDERED 4 UNITS OF FFP AND 2 UNITS OF PLATELETS. ORDER PUT IN AND LAB NOTIFIED. FAMILY AT BEDSIDE
--- NOTE | 2020-10-07 22:38 | NUR ---
DR. ZUÑIGA CALLED TO CHECK STATUS OF PT. GAVE ORDERS TO TURN FI02 FROM 100% TO 80%
[2020-10-08] VITALS (87 sets, daily range): BP systolic 90–187; BP diastolic 35–93
[2020-10-08 04:45] LABS: BASOPHILS 0.2 % (0-2); EOSINOPHILS 0 % (0-7); HEMATOCRIT 20.8 % (36.0-48.0); IMMATURE GRANULOCYTES 0.2 % (0-5); LYMPHOCYTE ABS# 1.06 10x3/uL (1.18-3.74); LYMPHOCYTES 21.2 % (15-50); MCH 28.9 pg (26.0-34.0); MCHC 32.7 g/dL (31.0-37.0); MCV 88.5 fL (80.0-100.0); NEUTROPHIL ABS# 3.57 10x3/uL (1.56-6.13); NEUTROPHILS 71.4 % (40-80); RDW 17.7 % (11.5-14.5)
[2020-10-08 04:50] LABS: APTT 32.8 SECONDS (22.8-39.4); PROTIME 20.6 SECONDS (11.6-15.0)
[2020-10-08 04:52] LABS: ALBUMIN 2.4 g/dL (3.4-5.0); BILIRUBIN - TOTAL 3.87 mg/dL (0.2-1.3); CALCIUM 8.1 mg/dL (8.5-10.1); CREATININE - SERUM 4.7 mg/dL (0.6-1.3); INR 1.95 (0.85-1.17); POTASSIUM - SERUM 4.2 mmol/L (3.5-5.1); PROTEIN - SERUM 4.7 g/dL (6.4-8.2)
[2020-10-08 04:53] LABS: ANION GAP 25.3 mmol/L (8-16); CARBON DIOXIDE 25.9 mmol/L (21.0-32.0); RBC 2.35 10x6/uL (4.00-5.40)
[2020-10-08 04:54] LABS: HEMOGLOBIN 6.8 g/dL (12-16); PLATELET COUNT 190 10x3/uL (130-400)
--- NOTE | 2020-10-08 04:59 | NUR ---
DR. DARIANA JARVIS FOR CRITICAL LAB
--- NOTE | 2020-10-08 05:03 | NUR ---
DR. WESTBROOK CALLED BACK ORDERS GIVEN.
--- NOTE | 2020-10-08 05:08 | NUR ---
DR. WESTBROOK NOTIFIED OF FLUID FILLD BLISTER THAT HAS FORMED NEAR THE INCISION SITE ON LEFT SIDE OF ABD. CRITICAL LAB OF HGB 6.8. 3 UNITS FFP AND 3 UNITS OF PRBC ORDERED WELL VITAMIN K 20MG IV.
--- NOTE | 2020-10-08 07:00 | NUR ---
REPORT RECEIVED.A SSESSMENT COMPLETE PER FLOW SHEET. VSS.
--- NOTE | 2020-10-08 07:30 | NUR ---
3RD U FFP GIVEN.
--- NOTE | 2020-10-08 08:00 | NUR ---
PHARMACY CALLED QUESTIONED 20MEQ VIT K ORDER. DR FRANK PAGED TO VERIFY, AWAITING CALL BACK.
--- NOTE | 2020-10-08 08:30 | NUR ---
DR ZUÑIGA AT BEDSIDE GIVEN UPDATE. NO NEW ORDERS.
--- NOTE | 2020-10-08 09:30 | NUR ---
DR FRANK AT BEDSIDE. ORDER TO GIVE VIT K.
[2020-10-08 10:26] LABS: HEMOGLOBIN 9.4 g/dL (12-16)
--- NOTE | 2020-10-08 10:41 | NUR ---
Nutrition consult: Pt discussed during IDT team rounds. Dr. Adkins ordered TPN to begin @ 40 ml/hr Pt intubated, sedated with propofol Wt: 209# Dialysis started CT with increase output NGT->LIWS RDN order TPN to begin at 40 ml/hr Follow-up: 10/09/20
--- NOTE | 2020-10-08 11:10 | NUR ---
REASSESSMENT COMPLETE PER FLOW SHEET. VSS. NO NEW CHANGES
--- NOTE | 2020-10-08 13:40 | NUR ---
PT TO OR AT THIS TIME. VERNON AT BEDSIDE
--- NOTE | 2020-10-08 14:04 | NUR ---
FIVE LAPS SPONGES REMOVED FROM ABDOMINAL WOUND-SHEFALI FREEMAN
[2020-10-08 15:07] LABS: BASOPHILS 0.5 % (0-2); EOSINOPHILS 0.1 % (0-7); HEMATOCRIT 29.4 % (36.0-48.0); HEMOGLOBIN 9.5 g/dL (12-16); LYMPHOCYTE ABS# 2.46 10x3/uL (1.18-3.74); LYMPHOCYTES 23.2 % (15-50); MCH 28.8 pg (26.0-34.0); MCHC 32.3 g/dL (31.0-37.0); MCV 89.1 fL (80.0-100.0); MEAN PLATELET VOLUME 11.5 fL (7.4-10.4); MONOCYTES 8.1 % (2-11); NEUTROPHILS 67.1 % (40-80); RDW 17.3 % (11.5-14.5)
[2020-10-08 15:08] LABS: PLATELET COUNT 128 10x3/uL (130-400); WBC 10.6 10x3/uL (4.8-10.8)
[2020-10-08 15:40] LABS: APTT 36.9 SECONDS (22.8-39.4); INR 2.11 (0.85-1.17)
[2020-10-08 15:50] LABS: ALBUMIN 2.1 g/dL (3.4-5.0); BILIRUBIN - TOTAL 3.94 mg/dL (0.2-1.3); CALCIUM 8.3 mg/dL (8.5-10.1); CARBON DIOXIDE 20.6 mmol/L (21.0-32.0); CREATININE - SERUM 5.2 mg/dL (0.6-1.3); MAGNESIUM - SERUM 2.1 mg/dL (1.8-2.4); POTASSIUM - SERUM 4.6 mmol/L (3.5-5.1); PROTEIN - SERUM 4.6 g/dL (6.4-8.2)
--- NOTE | 2020-10-08 19:14 | NUR ---
RECEIVED BEDSIDE REPORT. ROUNDING COMPLETE. PATIENT RESTING COMFORTABLY. PATIENT REMAINS ON MECHANICAL VENTILATION. BLOOD PRESSURE STABLE AT THIS TIME. WILL CPOC.
[2020-10-08 20:43] LABS: HEMATOCRIT 28.4 % (36.0-48.0); HEMOGLOBIN 9.1 g/dL (12-16)
--- NOTE | 2020-10-08 23:48 | NUR ---
RECHECKED FSBS. BLOOD GLUCOSE 69.
--- NOTE | 2020-10-09 00:29 | NUR ---
PATIENT NOTED TO BE IN ASYSTROLE ON MONITOR. SEE CODE BLUE SHEET.
[2020-10-09 09:11] LABS: HEPATITIS C ANTIBODY <0.1 (0.0-0.9)
== END 2020-10-09 04:07 | DRG 907 ==
LOC: D.OPS 06:00 → D.MS 06:00 → D.OPS 08:00 → D.MS 09:50 → D.OPS 11:33 → D.ICU 11:34 → OBSVTIME 11:34 → D.ICU 11:34
PROVIDERS: Anesthesiology; Internal Medicine Nephrology; Internal Medicine Pulmonary Disease; ADMIT Surgery; ATTEND Surgery
PROC: 0W3G4ZZ Control Bleeding in Peritoneal Cavity, Percutaneous Endoscopic Approach (ICD-10-PCS; 2020-10-05)
PROC: 0W9930Z Drainage of Right Pleural Cavity with Drainage Device, Percutaneous Approach (ICD-10-PCS; 2020-10-05)
PROC: 06HM33Z Insertion of Infusion Device into Right Femoral Vein, Percutaneous Approach (ICD-10-PCS; 2020-10-05)
PROC: 04HY32Z Insertion of Monitoring Device into Lower Artery, Percutaneous Approach (ICD-10-PCS; 2020-10-05)
PROC: 0DV44ZZ Restriction of Esophagogastric Junction, Percutaneous Endoscopic Approach (ICD-10-PCS; principal; 2020-10-05 08:00)
PROC: 0FB04ZX Excision of Liver, Percutaneous Endoscopic Approach, Diagnostic (ICD-10-PCS; 2020-10-05 08:00)
PROC: 0W9B00Z Drainage of Left Pleural Cavity with Drainage Device, Open Approach (ICD-10-PCS; 2020-10-07)
PROC: 2W03X6Z Change Pressure Dressing on Abdominal Wall (ICD-10-PCS; 2020-10-07)
DX: I97.620 Postprocedural hemorrhage of a circulatory system organ or structure following other procedure (principal); K72.00 Acute and subacute hepatic failure without coma; N17.0 Acute kidney failure with tubular necrosis; D65 Disseminated intravascular coagulation [defibrination syndrome]; J96.00 Acute respiratory failure, unspecified whether with hypoxia or hypercapnia; D62 Acute posthemorrhagic anemia; E87.0 Hyperosmolality and hypernatremia; J93.9 Pneumothorax, unspecified; T79.A3XA Traumatic compartment syndrome of abdomen, initial encounter; K21.9 Gastro-esophageal reflux disease without esophagitis; T81.10XA Postprocedural shock unspecified, initial encounter; K44.9 Diaphragmatic hernia without obstruction or gangrene; Y83.9 Surgical procedure, unspecified as the cause of abnormal reaction of the patient, or of later complication, without mention of misadventure at the time of the procedure; I48.91 Unspecified atrial fibrillation; I10 Essential (primary) hypertension